=== PATIENT | male | born 1970 | race Caucasian/White ===

== ENCOUNTER 2020-11-07 08:20 | Emergency (ER) | payer OTHER ==
[2020-11-07] MEDS ORDERED: BUFFERED LIDOCAINE 10 ML SYRINGE SUBQ STA (08:41)
--- NOTE | 2020-11-07 08:44 | ED Physician Documentation ---
PD HPI UPPER EXT INJURY - Stated complaint Stated Complaint: DOG BITES - Chief complaint Chief Complaint: Ext Problem - History obtained from History obtained from: Patient, Family - History of Present Illness Location: Right, Left, Arm, Forearm, Wrist Type of injury: Other (dog bite) Where injury occurred: [place] (beach) Timing - onset: Enter time (829), Today Timing - duration: Minutes Timing - details: Abrupt onset, Still present Improved by: Rest, Immobilization Worsened by: Moving, Palpating Associated symptoms: No: Weakness, Numbness, Tingling, Swelling, Discolored Contributing factors: No: Anticoagulated Similar symptoms before: Has not had sx before Recently seen: Not recently seen - Additonal information Additional information: 50-year-old male presents to the emergency department with dog bites to his right forearm left forearm and left arm. She [place] the [place] and his and his dog got in a fight with another dog and he went to break it up he pinned his dog on the ground and during this time the dog bit him in the right wrist and in the left forearm and axilla. He denies any numbness or tingling distally he has been able to control bleeding with direct pressure. Review of Systems Constitutional: denies: Fever Eyes: denies: Decreased vision Respiratory: denies: Cough GI: denies: Vomiting PD PAST MEDICAL HISTORY - Present Medications Home Medications: Ambulatory Orders Medication Instructions Recorded Confirmed Amox/Clav 875/125 [Augmentin] 1 each PO Q12H #10 tablet 11/07/20 lamoTRIgine [Lamictal] 1 tab PO DAILY 11/07/20 11/07/20 - Allergies Allergies/Adverse Reactions: Allergies Allergy/AdvReac Type Severity Reaction Status Date / Time No Known Drug Allergies Allergy Verified 11/07/20 08:34 PD ED PE NORMAL - Vitals Vital signs reviewed: Yes (normal ) - General General: Alert and oriented X 3, No acute distress, Well developed/nourished - HEENT HEENT: Atraumatic, PERRL, EOMI - Neck Neck: Supple, no meningeal sign - Respiratory Respiratory: No respiratory distress - Derm Derm: Normal color, Warm and dry, No rash - Extremities Extremities: Other (There is a laceration to the dermis on the right dorsal forearm about 3cm without FB. There is penetrating flesh wound to the opposite sided of the wrist. There is a similar wound to the left wrist and there are 2 penetrating flesh wounds to the left arm volar surface near the axilla. distal n/v int) - Neuro Neuro: Alert and oriented X 3, security team lead 2-12 intact, No motor deficit, No sensory deficit, Normal speech Eye Opening: Spontaneous Motor: Obeys Commands Verbal: Oriented GCS Score: 15 - Psych Psych: Normal mood, Normal affect Results - Vitals Vitals: Vital Signs - 24 hr 11/07/20 08:29 Temperature 36.6 C Heart Rate 66 Respiratory 16 Rate Blood Pressure 122/77 O2 Saturation 99 Oxygen O2 Source Room air Procedures - Laceration (location) dorsal forearm Length in cm: 3.5 Wound type: Linear, Superficial, Clean Neurovascular status: Sensory intact, Motor intact, Vascular intact Anesthesia: Lidocaine 1%, With bicarb Wound preparation: Hibiclens, Irrigated copiously NS Skin layer closure: Nylon, Interrupted, Size #-0 - enter number (4-0) Other: Patient tolerated well, No complications, Neurovascular intact, Dressing applied, Tetanus booster given left axilla Length in cm: 5 Wound type: Irregular, Into subcut fat, Clean, Other (2 deep wounds to the fleshy underbelly of the axilla. through the dermis into the fat. Cleaned well and left open.) Neurovascular status: Sensory intact, Motor intact, Vascular intact Anesthesia: Lidocaine 1%, With bicarb Wound preparation: Hibiclens, Irrigated copiously NS Skin layer closure: Other (not closed) Other: Patient tolerated well, No complications, Neurovascular intact, Dressing applied, Tetanus booster given PD MEDICAL DECISION MAKING - ED course Complexity details: re-evaluated patient, considered differential, d/w patient, d/w family ED course: 50-year-old male with dog bite wounds to the left axilla and the right forearm has wounds cleansed after anesthetization with 1% lidocaine buffered with bicarbonate. The wounds to the axilla are left open to wounds to the volar surface of the right wrist are left open and a more superficial wound to the dorsal surface of the right forearm is repaired. The patient is given a dose of Augmentin. He is updated on his tetanus. Departure - Departure Disposition: 01 Home, Self Care Clinical Impression: Dog bite of arm Qualifiers: Encounter type: initial encounter Laterality: unspecified laterality Qualified Code(s): S41.159A - Open bite of unspecified upper arm, initial encounter; W54.0XXA - Bitten by dog, initial encounter Condition: Stable Instructions: ED Bite Dog, ED Laceration Ext Sutr Stap Tape Follow-Up: Your, doctor [Other] Prescriptions: Amox/Clav 875/125 [Augmentin] 1 each PO Q12H #10 tablet Comments: Sutures will need to be removed from the forearm in 7 to 10 days. If you develop signs and symptoms of infection with increased swelling redness and tenderness or drainage from the wounds follow-up with the emergency department.
[2020-11-07] MEDS ORDERED: TETANUS/DIPHTHERIA/PERTUSSIS 0.5 ML SYRINGE IM ONE (08:57)
[2020-11-07] MEDS ORDERED: LIDOCAINE/PRILOCAINE 2.5% CREAM 5 GM TUBE TOP STA (09:15)
[2020-11-07] MEDS ORDERED: AMOX/CLAV 875 MG/125 MG TABLET PO STA (10:55)
[2020-11-07 11:32] VITALS: BP 128/89
== END 2020-11-07 11:33 | disposition home or self-care (01) ==
LOC: ED 08:20
DX: S51.852A Open bite of left forearm, initial encounter (principal); S51.851A Open bite of right forearm, initial encounter; W54.0XXA Bitten by dog, initial encounter; Y93.9 Activity, unspecified; Y92.832 Beach as the place of occurrence of the external cause; Z23 Encounter for immunization
CPT/HCPCS: 12004; 90471; 90715; 99283; A9270; J3490